=== PATIENT | male | born 1990 | race Two or more races ===

== ENCOUNTER 2018-07-16 02:42 | Emergency (ER) | payer SELFPAY ==
[~2018-07-16] VITALS: Ht 177.8 cm; Wt 81.0 kg
[2018-07-16 04:41] VITALS: BP 118/82
== END 2018-07-16 04:45 | disposition home or self-care (01) ==
LOC: ER 02:42
DX: S50.811A Abrasion of right forearm, initial encounter (principal); M54.2 Cervicalgia; F17.200 Nicotine dependence, unspecified, uncomplicated; R00.0 Tachycardia, unspecified; R03.0 Elevated blood-pressure reading, without diagnosis of hypertension; Z90.49 Acquired absence of other specified parts of digestive tract; V43.52XA Car driver injured in collision with other type car in traffic accident, initial encounter; Y93.89 Activity, other specified; Y92.488 Other paved roadways as the place of occurrence of the external cause
CPT/HCPCS: 70450; 71045; 72125; 73090; 99284